=== PATIENT | male | born 1930 | race Caucasian/White ===

== ENCOUNTER 2016-09-19 19:14 | Emergency (ER) | payer MEDICARE, OTHER ==
[2016-09-19] MEDS ORDERED: Acetaminophen/HYDROcodone 325-5 MG Tab PO ONE (20:35)
[2016-09-19] MEDS ORDERED: Amoxicillin/Clavulanate K 500-125 MG Tab PO ONE (20:35)
[2016-09-19 20:38] VITALS: BP 142/99
--- NOTE | 2016-09-20 12:02 | ER ---
DATE SEEN: 09/19/2016 TIME SEEN: The patient was seen at 2000 hours. HISTORY OF PRESENT ILLNESS: This pleasant 85-year-old gentleman came on with onset of epistaxis while he was at [facility]. He had been bending over and was noticed to have blood from his left nostril. He is taking a NOAC, apixaban 2.5 mg b.i.d. He has atrial fibrillation. Otherwise, the patient is healthy. He denies hypertension, diabetes, serious heart disease, asthma, or serious illnesses. CURRENT MEDICATIONS: 1. Eliquis 2.5 mg b.i.d. 2. Carvedilol 6.25 mg b.i.d. 3. Iron sulfate 65 mg daily. 4. Vitamin D. 5. Levothyroxine 112 mcg daily. 6. Latanoprost 0.005% solution b.i.d. glaucoma. 7. Simvastatin 20 mg daily. 8. Omeprazole 20 mg b.i.d. 9. Lutein 20 mg daily. REVIEW OF SYSTEMS: Otherwise negative. The patient denies headache, neck stiffness, compromised vision, nasal pain, or previous nasal cancer. SOCIAL HISTORY: Never been a smoker. Denies alcohol. Does not use street drugs. IMMUNIZATIONS: Tetanus - is not sure. PHYSICAL EXAMINATION: VITAL SIGNS: Blood pressure 153/106, heart rate 99, respirations 18, and 99% oxygen saturation. Repeat blood pressure 142/99, 99% oxygen saturation, and 88 pulse. The patient is 58.9 kg. BMI 18.7. GENERAL: This asthenic, pleasant, older man is in mild distress. HEENT: He has a small amount of bleeding from left naris, fresh blood. Pharynx without abnormality. No erythema. Just a small amount of blood in the posterior pharynx. LUNGS: Clear to auscultation without rales, rhonchi, or wheezes. HEART: S1, S2. No murmur. NECK: There are no bruits. No cervical adenopathy or neck stiffness. ABDOMEN: Nontender. No hepatosplenomegaly. SKIN: No rashes. EXTREMITIES: No pedal edema. ENT EXAM: Once the clots were removed with speculum, exam revealed a mid septal nasal bleed. PROCEDURE: Cocaine was administered using several a wisps of cotton fabricated into several pledgets 7 cm long soaked in 50% Afrin solution and cocaine. This resulted in hemostasis. Bleeding diminished. Once again examined and a left mid septal bleed was identified. Rapid Rhino treated momentarily with water for to magnify the lubrication of the outer hygroscopic sensitive fabric a then the Rapid Rhino was placed easily. 6 mL of air placed within the balloon. This caused tamponade. No further bleeding noted. Posterior pharynx and outer left nare were free of further bleeding 4 different re-examinations. There was an expected occasional drip of blood from the left naris. PLAN: The patient to use Augmentin 500 mg t.i.d. for 10 days. See his doctor in 3 days, remove the balloon at that time. He had previous epistaxis treated with electric fulguration. Hopefully, the balloon will be suffice and he will not require fulguration. Plan to continue NOAC. Follow up with doctor in 3 days. Augmentin 500 mg t.i.d., 30 tablets. Also, Vicodin for pain and discomfort 1/2 to 1 tab q.4-6 hours p.r.n. pain and if he has too much pain in his nose, further decompression by withdrawing small 5 ml aliqots of air of the balloon as needed per his doctor's discretion. ASSESSMENT: 1. Left naris epistaxis. 2. Use of non vitamin K oral anticoagulants (NOAC). There is no reversal agent. 3. Atrial fibrillation, treated. DIAGNOSES: 1. Left nasal epistaxis. 2. Hypothyroidism. 3. Atrial fibrillation, treated with NOAC. 4. Glaucoma. 5. Dyslipidemia. 6. Gastroesophageal reflux disease. /[id number] ALISTAIR/VY JON
== END 2016-09-19 21:00 | disposition home or self-care (01) ==
LOC: FB.ED 19:14
DX: R04.0 Epistaxis (principal); I48.91 Unspecified atrial fibrillation; E03.9 Hypothyroidism, unspecified; I10 Essential (primary) hypertension; E11.9 Type 2 diabetes mellitus without complications; J45.909 Unspecified asthma, uncomplicated; Z79.899 Other long term (current) drug therapy
CPT/HCPCS: 30901; 99283; A9270